=== PATIENT | male | born 1970 | race Caucasian/White ===

== ENCOUNTER 2018-01-26 10:21 | Day surgery (SDC) | payer BC ==
[2018-01-25 12:49] VITALS: BMI 25.5
--- NOTE | 2018-01-26 09:35 | P.GSHP ---
History of Present Illness H&P Date: 01/26/18 CHIEF COMPLAINT: Colon screen HISTORY OF PRESENT ILLNESS: The patient is a 47-year-old male who presents for colon screen. Lower endoscopy was offered for further evaluation and management. PAST MEDICAL HISTORY: Please see list. PAST SURGICAL HISTORY: Please see list. MEDICATIONS: Please see list. ALLERGIES: Please see list. SOCIAL HISTORY: No illicit drug use FAMILY HISTORY: No reports of Crohn disease or ulcerative colitis. REVIEW OF ORGAN SYSTEMS: CONSTITUTIONAL: No reports of fevers or chills. PHYSICAL EXAM: VITAL SIGNS: Stable GENERAL: Well-developed pleasant in no acute distress. HEENT: No scleral icterus. Extraocular movements grossly intact. Moist buccal mucosa. NECK: Supple without lymphadenopathy. CHEST: Unlabored respirations. Equal bilateral excursions. CARDIOVASCULAR: Regular rate and rhythm. Distal 2+ pulses. ABDOMEN: Soft, nontender, nondistended. MUSCULOSKELETAL: No clubbing, cyanosis, or edema. ASSESSMENT: 1. Colon screen. PLAN: 1. Recommend proceeding with a lower endoscopy Past Medical History Past Medical History: Hypertension Additional Past Medical History / Comment(s): rectal bleeding recently, diverticulitis w/rupture diverticuli 2010 History of Any Multi-Drug Resistant Organisms: None Reported Past Surgical History: Bowel Resection Additional Past Surgical History / Comment(s): colostomy & then reversed 2010 Past Anesthesia/Blood Transfusion Reactions: Previous Problems w/ Anesthesia Additional Past Anesthesia/Blood Transfusion Reaction / Comment(s): was told difficult intubation w/last surgery Smoking Status: Never smoker - Past Family History Mother Family Medical History: No Reported History Medications and Allergies Home Medications Medication Instructions Recorded Confirmed Type Cephalexin [Keflex] 500 mg PO Q12HR 01/25/18 01/25/18 History Lisinopril(Unknown Dose) 1 tab PO DAILY 01/25/18 History Allergies Allergy/AdvReac Type Severity Reaction Status Date / Time No Known Allergies Allergy Verified 01/25/18 12:36
[~2018-01-26 10:21] MED LIST: LACTATED RINGERS 1,000 ML IV SCH
[2018-01-26 11:32] VITALS: TEMP 98.5
[2018-01-26] MEDS ORDERED: LIDOCAINE 1% 20 ML VIAL (10MG/ML) FOR IV START INTRADERMA ONE (11:50)
[2018-01-26] MEDS ORDERED: PROPOFOL 10 MG/ML 20 ML VIAL IV ONE (12:58)
[2018-01-26] MEDS ORDERED: LIDOCAINE 1% INJ 10MG/ML (20 ML MDV) ONE (12:58)
--- NOTE | 2018-01-26 13:25 | P.PCN ---
Date of Procedure: 01/26/18 Description of Procedure: PREOPERATIVE DIAGNOSIS: History of diverticulitis with prior rupture Status post colon resection with colostomy reversal Recent rectal bleeding POSTOPERATIVE DIAGNOSIS: History of diverticulitis with prior rupture Status post colon resection with colostomy reversal Recent rectal bleeding Colon polyp cecum OPERATION: Colonoscopy to the ileocecal valve and appendiceal orifice. SURGEON: Ange Gallo MD. ANESTHESIA: MAC. INDICATIONS: The patient is a 47-year-old female who presents for colonoscopy. He has personal history of perforated diverticulitis with colostomy and reversal. He reports recent rectal bleeding. Benefits and risks were described and informed consent was obtained. DESCRIPTION OF PROCEDURE: The patient had undergone Gatorade, MiraLAX and Dulcolax prep. He had been brought into the operating room and laid in the left lateral decubitus position. The prostate was unremarkable. After adequate intravenous sedation, the rectum was examined with 2% lidocaine jelly. No external hemorrhoids were encountered. The rectal tone was within normal limits. No lesions were palpated in the rectal vault. An Olympus colonoscope was advanced until the ileocecal valve and appendiceal orifice were clearly viewed. The prep was fair requiring colonic irrigation. The scope was removed with visualization of each mucosal fold. Residual diverticulosis was found along his colonic anastomosis at 20 cm from the anal verge, sigmoid colon remnant. Recent inflammatory changes consistent with past history of bleed. Hyperplastic polyp of 4 mm was cold forceps biopsies at the ileocecal valve. No evidence of focal colitis was found. No grade 1 internal hemorrhoids were found. The colon was desufflated. The patient had tolerated the procedure well. Withdrawal time was over 6 minutes. FINDINGS: No internal hemorrhoids No external prolapsed hemorrhoids. No arteriovenous malformations. Residual diverticulosis was found along his colonic anastomosis at 20 cm from the anal verge, sigmoid colon remnant. Recent inflammatory changes at colon anastomosis consistent with past history of bleed. Hyperplastic polyp of 4 mm was cold forceps biopsies at the ileocecal valve, cecum No focal colitis. RECOMMENDATIONS: Lower endoscopy at age 51, 2021 per screening guidelines Plan - Discharge Summary New Discharge Prescriptions: No Action Cephalexin [Keflex] 500 mg PO Q12HR Lisinopril [Zestril] 10 mg PO DAILY Discharge Medication List Cephalexin [Keflex] 500 mg PO Q12HR 01/25/18 [History] Lisinopril [Zestril] 10 mg PO DAILY 01/25/18 [History]
[2018-01-26 13:41] VITALS: BP 108/63; PULSE 84; RESP 18
== END 2018-01-26 13:56 | disposition home or self-care (01) ==
LOC: ORWHC2ENDO 10:21
PROVIDERS: ATTEND Surgery Plastic and Reconstructive Surgery
DX: K63.5 Polyp of colon (principal); I10 Essential (primary) hypertension; Z93.3 Colostomy status; Z90.49 Acquired absence of other specified parts of digestive tract; Z79.899 Other long term (current) drug therapy; K62.5 Hemorrhage of anus and rectum; Z79.2 Long term (current) use of antibiotics
CPT/HCPCS: 88305; 45380; J2001; J2704